=== PATIENT | male | born 1950 | race Caucasian/White ===

== ENCOUNTER 2017-10-28 00:08 | Emergency (ER) | payer MEDICARE, BC ==
[~2017-10-28] VITALS: Ht 177.8 cm; Wt 140.6 kg
[2017-10-28] MEDS ORDERED: Ventolin Sy2 MG/5 ML (00:18)
[2017-10-28] MEDS ORDERED: NYST100000 (00:18)
[2017-10-28] MEDS ORDERED: TAMS.4ER (00:19)
[2017-10-28] MEDS ORDERED: LEVONORGESTREL (00:19)
[2017-10-28] MEDS ORDERED: ETHINYL ESTRADIOL (00:19)
[2017-10-28] MEDS ORDERED: WARF1 (00:19)
[2017-10-28] MEDS ORDERED: LOVA40 (00:19)
[2017-10-28] MEDS ORDERED: BENZ100A PO (00:46)
== END 2017-10-28 00:55 | disposition home or self-care (01) ==
LOC: ER 00:08
DX: T17.990A Other foreign object in respiratory tract, part unspecified in causing asphyxiation, initial encounter (principal); J44.9 Chronic obstructive pulmonary disease, unspecified; Z79.01 Long term (current) use of anticoagulants; Z79.899 Other long term (current) drug therapy; E78.5 Hyperlipidemia, unspecified; I48.91 Unspecified atrial fibrillation
CPT/HCPCS: 94640; 99283